=== PATIENT | female | born 1970 | race Caucasian/White ===

== ENCOUNTER 2022-05-13 11:38 | Emergency (ER) | payer OTHER, SELFPAY ==
--- NOTE | ~2022-05-13 | CT_ITS ---
EXAMINATION: CT brain wo con DATE: 05/13/2022 13:07 INDICATION: Recurrent seizure. TECHNIQUE: Computed tomography (CT) of the head was performed without intravenous contrast. The mA wa s adjusted according to patient size. Iterative reconstruction technique was employed. The dose-lengt h product was 605.33 mGy-cm. COMPARISON: None FINDINGS: There is asymmetric volume loss of left cerebral hemisphere. There is volume loss of the ce rebellum. There is a 15 x 14 x 4 mm hyperdense mass at the right cerebellar tentorium. There is no ac [place] infarction. There is 3 mm leftward midline shift. There is mild mucosal thickening in the ethmoid sinuses. The mastoid air cells are normal. Skull thickening is noted, which may be a medication effe ct. IMPRESSION: 1. 15 x 14 x 4 mm hyperdense mass at the right cerebellar tentorium, which may be a meningioma or acu te subdural hematoma. Comparison with outside imaging would be useful. 2. Chronic volume loss involving the left cerebral hemisphere and cerebellum. Reviewed, dictated and finalized at location A. IMPRESSION: 1. 15 x 14 x 4 mm hyperdense mass at the right cerebellar tentorium, which may be a meningioma or acute subdural hematoma. Comparison with outside imaging wou ld be useful. 2. Chronic volume loss involving the left cerebral hemisphere and cerebellum.
--- NOTE | ~2022-05-13 | XR_ITS ---
EXAMINATION: XR chest 1V portable DATE: 05/13/2022 12:01 INDICATION: Altered mental status. TECHNIQUE: A single frontal view of the chest was obtained. COMPARISON: None. FINDINGS: The chest demonstrates clear lungs without pneumonia, pleural effusion, or pneumothorax. Th e heart size is normal. There is in electronic device overlying left chest with electrodes in left ne ck. IMPRESSION: 1. No acute cardiopulmonary disease. Reviewed, dictated and finalized at location A.
[2022-05-13 11:43] VITALS: BP 138/69; PULSE 111; RESP 19; TEMP 37.2; O2SAT 98
--- NOTE | 2022-05-13 12:16 | ED.SEIZURE ---
HPI - Seizure General Chief Complaint: Seizure Stated Complaint: seizure Time Seen by Provider: 05/13/22 12:14 Source: EMS Mode of arrival: EMS Limitations: altered mental status History of Present Illness HPI Narrative: Patient is 51 years old white female came [facility] ambulance because of seizure. 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 When the ambulance arrived 15 minutes later patient was talking,. Then began to answer questions with yes or no answers, length of seizure is unknown, patient does have history of CVA and seizure. No significant other at the bedside at this time. Related Data Allergies Allergy/AdvReac Type Severity Reaction Status Date / Time No Known Allergies Allergy Verified 05/13/22 14:33 Review of Systems Review of Systems: ROS unobtainable: Yes unobtainable due to medical condition and unobtainable due to mental status Exam Narrative: General appearance: Well-developed, malnourished Skin: Normal color Head: Normocephalic, nontraumatic Eyes: Clear conjunctiva ENT: Oropharynx normal, ears normal, nose normal Neck: Supple, nontender Chest and respiratory: Airway patent, no respiratory distress, no accessory muscle use Heart: Regular rate/rhythm Abdomen: Soft, nontender, no organomegaly, quiet bowel sounds Vascular: Normal peripheral pulses, normal capillary refill. Musculoskeletal: Unable to examine, patient does not follow verbal commands Neurologic: Alert and disoriented x4 Course Reevaluation(s) Reevaluation #1: Currently patient is awake, is telling me that she is feeling tired, follow verbal commands sometimes, does not answer questions, keeps saying I am tired. Date: 05/13/22 Time: 14:23 Consultations Consultation #1: DR MAN, neurosurgeon at [facility] who accepted patient transfer Date: 05/13/22 Time: 15:57 Consultation #2: Dr. LIU. ED of [facility] Vital Signs Vital signs: Vital Signs Temperature 37.2 C 05/13/22 11:43 Pulse Rate 111 H 05/13/22 11:43 Respiratory Rate 19 05/13/22 11:43 Blood Pressure 138/69 05/13/22 11:43 Pulse Oximetry 98 05/13/22 11:43 Temperature 37.2 C 05/13/22 11:43 Pulse Rate 90 05/13/22 16:37 Respiratory Rate 20 05/13/22 16:37 Blood Pressure 121/76 05/13/22 16:37 Pulse Oximetry 99 05/13/22 16:37 MDM - Seizure MDM Narrative Medical decision making narrative: Patient is 51 years old white female came from prison with seizure-like activity,/postictal. Patient had history of seizure. The nurse was taking care of the patient at the prison today is nurse and does not know the baseline of the patient and does not know the patient either. Patient arrived without any list of medications or her past medical history. Communication with the prison was not successful. Within 30 minutes patient became awake, with intermittent following verbal commands, keep saying that she is tired. Differential diagnosis recurrent seizure, intracranial abnormality, noncompliance with her medications. Work-up today showed, CT scan of the head without contrast showed hyperdense mass at the right cerebellar tentorium, meningioma versus subdural hematoma. No old CT scan available for comparison. Patient usually go to [facility]. Differential Diagnosis Differential diagnosis: Likely generalized seizure, epileptic seizure, status epilepticus and other (Intracranial pathology) Lab Data 05/13/22
--- NOTE | 2022-05-13 12:17 | ECG_ITS ---
Measurements Intervals [place] Rate: 108 P: 69 SD: 134 QRS: 86 QRSD: 92 T: 72 QT: 334 QTc: 449 Interpretive Statements SINUS TACHYCARDIA NONSPECIFIC T-WAVE ABNORMALITY NO PREVIOUS ECG AVAILABLE FOR COMPARISON Electronically Signed On 05-13-2022 13:00:41 CDT by Jomar Gramajo M.D.
[2022-05-13 12:36] LABS: Basophils Percent Auto 0.2 % (0.2-1.2); Hematocrit 30.9 % (37.0-47.0); Hemoglobin 10.1 g/dL (12.0-15.0); Immature Granulocyte Absolute 0.03 K/mm3 (0.00-0.031); Immature Granulocyte Percent A 0.6 % (0-0.5); Lymphocytes Absolute Auto 0.44 K/mm3 (0.9-3.2); Lymphocytes Percent Auto 8.7 % (18.3-44.2); Mean Corpuscular HGB Conc 32.7 g/dl (32-36); Mean Corpuscular Hemoglobin 30.1 pg (26-34); Mean Platelet Volume 9.6 fl (7.4-10.4); Monocytes Absolute Auto 0.4 K/mm3 (0.1-0.6); Monocytes Percent Auto 8.3 % (2.6-8.5); Neutrophils Absolute Auto 4.1 K/mm3 (1.3-6.7); Neutrophils Percent Auto 82.2 % (45.5-73.1); Platelet Count Result 171 k/mm3 (150-375); Red Blood Count 3.36 M/mm3 (4.2-5.4); Red Cell Distribution Width 16.4 % (11.5-14.5)
[2022-05-13 12:47] LABS: Glucose Point of Care 149 mg/dl (65-105)
[2022-05-13 12:56] LABS: Alanine Aminotransferase 26 U/L (6-35); Alkaline Phosphatase 71 U/L (38-126); Anion Gap 16 mmol/L (8-16); Aspartate Amino Transferase 27 U/L (14-36); Bilirubin,Total 0.5 mg/dL (0.2-1.3); Blood Urea Nitrogen 22 mg/dL (7-17); Calcium 9.6 mg/dL (8.4-10.2); Carbon Dioxide 18 mmol/L (22-30); Chloride 106 mmol/L (98-107); Estimated Glomerular Filt Rate > 60; Glucose 133 mg/dL (65-110); Potassium 3.8 mmol/L (3.4-5.0); Sodium 140 mmol/L (137-145)
[2022-05-13 13:05] LABS: Appearance Urine Clear (Clear); Bacteria Urine None Seen /hpf; Bilirubin Urine Negative (Negative); Blood Urine Negative (Negative); Color Urine Yellow (Yellow); Glucose Urine UA Negative (Negative); Ketones Urine Negative (Negative); Leukocyte Esterase Ur Negative LEU/UL (Negative); Mucus Urine Present /lpf; Need Manual Microscopic Reviewed; Nitrate Urine Negative (Negative); Protein Urine 2+ mg/dL (Negative); RBC Urine 0-2 /hpf (0-2); Specific Grav Ur 1.023 (1.001-1.035); Squamous Epithelial Cell Urine Few /hpf (Few); WBC Urine 0-5 /hpf; pH Urine 5.5 (5.0-9.0)
[2022-05-13 13:06] LABS: Add Urine Microscopic? YES
[2022-05-13 13:33] VITALS: BP 142/70; PULSE 91; RESP 15; O2SAT 97
[2022-05-13] MEDS: LORazepam INJ (*CRX) 2 MG/ML VIAL 1 MG IV PUSH (14:40)
[2022-05-13 15:38] VITALS: BP 118/68; PULSE 99; RESP 20; O2SAT 97
[2022-05-13 15:55] VITALS: BP 118/68; PULSE 94; RESP 20; O2SAT 97
[2022-05-13 16:37] VITALS: BP 121/76; PULSE 90; RESP 20; O2SAT 99
[2022-05-13 18:19] LABS: Amphetamine Screen Urine Negative (Negative); Barbiturate Screen Urine Negative (Negative); Benzodiazepines Screen Urine Negative (Negative); Cannabinoid Screen Urine Negative (Negative); Cocaine Screen Urine Negative (Negative); Methadone Screen Urine Negative (Negative); Opiate Screen Urine Negative (Negative); Phencyclidine Screen Urine Negative (Negative)
== END 2022-05-13 17:11 | disposition short-term general hospital (02) ==
PROVIDERS: Emergency Medicine; Emergency Provider Emergency Medicine; PCP Internal Medicine
DX: R56.9 Unspecified convulsions (principal); I62.00 Nontraumatic subdural hemorrhage, unspecified
CPT/HCPCS: 36415; 70450; 71045; 80053; 80307; 81001; 82948; 85025; 93005; 96374; 99284; 99285; J2060